=== PATIENT | female | born 1995 | race Caucasian/White ===

== ENCOUNTER 2020-09-05 10:25 | Emergency (ER) | payer MEDICAID ==
[~2020-09-05] VITALS: Ht 157.5 cm; Wt 63.5 kg
[2020-09-05 10:58] VITALS: BP_SYST 108
[2020-09-05 11:48] LABS: BASOPHILS % (AUTO) 0.9 % (0.0-2.0); EOSINOPHILS # (AUTO) 0.1 K/uL (0.0-0.4); EOSINOPHILS % (AUTO) 1.5 % (0.0-4.0); HEMATOCRIT 37.7 % (36-48); HEMOGLOBIN 12.5 g/dL (12.0-16.0); LYMPHOCYTES # (AUTO) 1.3 K/uL (1.0-5.5); LYMPHOCYTES % (AUTO) 24.8 % (20.5-51.5); MEAN CORPUSCULAR HEMOGLOBIN 29 pg (27-31); MEAN CORPUSCULAR HGB CONC 33 % (32-36); MEAN CORPUSCULAR VOLUME 88 fL (79.0-98.0); MONOCYTES # (AUTO) 0.4 K/uL (0.0-1.0); NEUTROPHILS # (AUTO) 3.5 K/uL (1.8-7.7); NEUTROPHILS % (AUTO) 65.8 % (40.0-70.0); PLATELET COUNT (AUTO) 192 K/uL (130-430); RED BLOOD CELL COUNT(AUTO) 4.27 MIL/uL (4.2-6.2); RED CELL DISTRIBUTION WIDTH 13.7 % (9.0-15.0); WHITE BLOOD COUNT (AUTO) 5.3 K/uL (4.8-10.8)
[2020-09-05 12:05] LABS: CALCIUM 8.8 mg/dL (8.4-11.0); CREATININE 0.53 mg/dL (0.55-1.30); POTASSIUM 4.3 mmol/L (3.5-5.1)
[2020-09-05 12:34] LABS: ALBUMIN 3.3 g/dL (3.4-4.8); TOTAL BILIRUBIN 0.4 mg/dL (0.0-1.0)
[2020-09-05 12:55] VITALS: BP_SYST 108
[2020-09-05 13:09] LABS: BILIRUBIN,URINE NEGATIVE (NEGATIVE); BLOOD, URINE 3+ (NEGATIVE); CLARITY/URINE CLEAR (CLEAR); COLOR,URINE YELLOW (YELLOW); GLUCOSE,URINE NEGATIVE (NEGATIVE); KETONES,URINE NEGATIVE (NEGATIVE); LEUKOCYTE ESTERASE ,URINE TRACE (NEGATIVE); NITRITE, URINE NEGATIVE (NEGATIVE); PROTEIN URINE NEGATIVE (NEGATIVE); UROBILINOGEN,URINE 0.2 (0.2-1.0)
[2020-09-05 13:44] LABS: BACTERIA,URINE None Seen /HPF (None Seen)
[2020-09-05 13:45] LABS: TRICHOMONAS,URINE None Seen /HPF (None Seen); YEAST,URINE None Seen /HPF (None Seen)
== END 2020-09-05 12:55 | disposition home or self-care (01) ==
LOC: SED 10:25
DX: O20.9 Hemorrhage in early pregnancy, unspecified (principal); Z3A.16 16 weeks gestation of pregnancy
CPT/HCPCS: 36415; 76805-TC; 80053; 81000-TC; 81025; 84702-TC; 85025; 99284

== ENCOUNTER 2021-05-10 15:38 | Emergency (ER) | payer MEDICAID ==
[~2021-05-10] VITALS: Ht 162.6 cm; Wt 65.3 kg
[2021-05-10 16:16] VITALS: BP_SYST 120
--- NOTE | 2021-05-10 16:49 | NUR ---
Patient triaged and placed in waiting room. VSS and patient appears in no acute distress at this time. Accompanied by SELF, awaiting available bed, and MD notified of need for MSE.
[2021-05-10 18:02] LABS: BASOPHILS % (AUTO) 0.4 % (0.0-2.0); BILIRUBIN,URINE NEGATIVE (NEGATIVE); BLOOD, URINE NEGATIVE (NEGATIVE); CLARITY/URINE CLEAR (CLEAR); COLOR,URINE YELLOW (YELLOW); EOSINOPHILS # (AUTO) 0.2 K/uL (0.0-0.4); EOSINOPHILS % (AUTO) 2.3 % (0.0-4.0); GLUCOSE,URINE NEGATIVE (NEGATIVE); HEMATOCRIT 38.2 % (36-48); HEMOGLOBIN 12.6 g/dL (12.0-16.0); KETONES,URINE NEGATIVE (NEGATIVE); LEUKOCYTE ESTERASE ,URINE NEGATIVE (NEGATIVE); LYMPHOCYTES # (AUTO) 2.3 K/uL (1.0-5.5); LYMPHOCYTES % (AUTO) 32.8 % (20.5-51.5); MEAN CORPUSCULAR HEMOGLOBIN 29 pg (27-31); MEAN CORPUSCULAR HGB CONC 33 % (32-36); MEAN CORPUSCULAR VOLUME 87 fL (79.0-98.0); MONOCYTES # (AUTO) 0.5 K/uL (0.0-1.0); MONOCYTES % (AUTO) 7.3 % (1.7-9.3); NEUTROPHILS # (AUTO) 4.1 K/uL (1.8-7.7); NEUTROPHILS % (AUTO) 57.2 % (40.0-70.0); NITRITE, URINE NEGATIVE (NEGATIVE); PLATELET COUNT (AUTO) 220 K/uL (130-430); PROTEIN URINE NEGATIVE (NEGATIVE); RED CELL DISTRIBUTION WIDTH 14.9 % (9.0-15.0); UROBILINOGEN,URINE 0.2 (0.2-1.0); WHITE BLOOD COUNT (AUTO) 7.1 K/uL (4.8-10.8)
--- NOTE | 2021-05-10 18:14 | NUR ---
Patient to ER bed 02 to gown for evaluation. Side rails up.
--- NOTE | 2021-05-10 18:15 | NUR ---
RECEIVED AND IN ROOM 2 STEADY GAIT, RESP UNLABORED, SKIN WARM AND DRY
--- NOTE | 2021-05-10 18:35 | NUR ---
HERE FOR ABD PAIN X 3 WEEKS. INCREASED PAIN TODAY MID LOWER ABD, DENIES N,V,D NO FEVER/CHILLS
[2021-05-10 18:51] LABS: CALCIUM 8.9 mg/dL (8.4-11.0); CREATININE 0.64 mg/dL (0.55-1.30); POTASSIUM 4.4 mmol/L (3.5-5.1)
--- NOTE | 2021-05-10 18:54 | NUR ---
DR DIAZ IN TO ASSESS
[2021-05-10 18:58] LABS: TOTAL BILIRUBIN 0.6 mg/dL (0.0-1.0)
--- NOTE | 2021-05-10 19:10 | NUR ---
Received report from JACOBO Du and continue care of patient.
--- NOTE | 2021-05-10 19:15 | NUR ---
Patient transported to ultrasound via wheelchair, accompanied by learning technologies specialist.
--- NOTE | 2021-05-10 19:42 | NUR ---
Returned from ultrasound room, back to [facility].
[2021-05-10] MEDS ORDERED: IBUP-1969 PO (20:46)
[2021-05-10 20:54] VITALS: BP_SYST 114
--- NOTE | 2021-05-10 20:54 | NUR ---
Patient given written and verbal discharge instructions and verbalizes understanding. ER MD discussed with patient the results and treatment provided. Patient in stable condition. ID arm band removed. Rx of Ibuprofen given. Patient educated on pain management and to follow up with PMD. Pain Scale 1/10. Opportunity for questions provided and answered. Medication side effect fact sheet provided.
== END 2021-05-10 20:54 | disposition home or self-care (01) ==
LOC: SED 15:38
DX: R10.32 Left lower quadrant pain (principal)
CPT/HCPCS: 36415; 76830-TC; 76857; 80053; 81003; 81025; 83690; 84702; 85025; 99284